=== PATIENT | male | born 1965 | race Two or more races ===

== ENCOUNTER 2021-05-11 14:20 | Emergency (ER) | payer MEDICAID, OTHER ==
[~2021-05-11] VITALS: Ht 172.7 cm; Wt 90.7 kg
[2021-05-11] MEDS ORDERED: TDAP DIPH,PERTUSS,TET VAC/PF 0.5 ML DISP.SYRIN IM ONE ×2 (14:30→15:01)
[2021-05-11] MEDS ORDERED: IBUPROFEN 600 MG TABLET PO ONE (15:00)
[2021-05-11] MEDS ORDERED: IBUPROFEN 600 MG TABLET ONE (15:13)
== END 2021-05-11 16:00 | disposition home or self-care (01) ==
LOC: ER 14:20
DX: S00.81XA Abrasion of other part of head, initial encounter (principal); W22.8XXA Striking against or struck by other objects, initial encounter; Y92.480 Sidewalk as the place of occurrence of the external cause; M25.561 Pain in right knee; F20.9 Schizophrenia, unspecified
CPT/HCPCS: 90715; A4663